=== PATIENT | male | born 1985 | race Caucasian/White ===

== ENCOUNTER 2018-12-07 07:36 | Emergency (ER) | payer OTHER, BC ==
[2018-12-07 07:46] VITALS: BP 140/107
[2018-12-07] MEDS ORDERED: NORMAL SALINE 1000 ML 1,000 ML IV ONE (09:43)
[2018-12-07] MEDS ORDERED: DIPHENHYDRAMINE HCL 50 MG/ML VIAL IV ONE ×2 (09:43→10:13)
[2018-12-07] MEDS ORDERED: METOCLOPRAMIDE HCL INJ/PF 10 MG/2 ML SDV IV ONE (09:44)
--- NOTE | 2018-12-07 09:46 | ER Document Report ---
ED Medical Screen (RME) - General Chief Complaint: Headache Stated Complaint: HEADACHE Time Seen by Provider: 12/07/18 09:28 Primary Care Provider: YAMINI KHAN [Primary Care Provider] - Follow up as needed TRAVEL OUTSIDE OF THE [place] IN LAST 30 DAYS: No - HPI Notes: 12/07/18 09:44 Patient is a 33-year-old male that presents to the emergency department for chief complaint of headache. Patient reports gradual onset of a headache that starts behind his eyes and radiates across the top of his head and down his neck. The headache is worse with movement. He states it is better when he is not moving. He reports phonophobia but denies photophobia. Patient states his vision seems blurry which slightly improves when he closes his left eye. He does have a history of headaches similar in the past. He saw his chiropractor on Monday for a cervical alignment and states that initially he did have some improvement of his symptoms but they became worse on . Past medical history: Negative Past surgical history: Negative Past social history: Quit tobacco 5 years ago, denies alcohol and drug use ROS: GENERAL: Denies fever of chills CV: Denies chest pain PHYSICAL EXAMINATION: GENERAL: Appears uncomfortable, well-nourished HEAD: Atraumatic, normocephalic. EYES: Pupils equal round extraocular movements intact, conjunctiva are normal. ENT: Nares patent NECK: Bilateral paraspinal cervical muscle tenderness LUNGS: No respiratory distress Musculoskeletal: Normal range of motion NEUROLOGICAL: Normal speech, normal gait. PSYCH: Normal mood, normal affect. MDM: Patient seen and examined for rapid initial assessment. Vital signs reviewed. A comprehensive ED assessment and evaluation of the patient, analysis of test results and completion of the medical decision making process will be conducted by additional ED providers. - Related Data Allergies/Adverse Reactions: amoxicillin Allergy (Verified 12/07/18 07:38) Past Medical History - Social History Chew tobacco use (# tins/day): No Frequency of alcohol use: Rare Drug Abuse: None Renal/ Medical History: Denies: Hx Peritoneal Dialysis Physical Exam - Vital signs Vitals: Temp Pulse Resp BP Pulse Ox 97.8 F 80 18 140/107 H 97 12/07/18 07:43 12/07/18 07:43 12/07/18 07:43 12/07/18 07:43 12/07/18 07:43 Course - Vital Signs Vital signs: Temp Pulse Resp BP Pulse Ox 97.8 F 80 18 140/107 H 97 12/07/18 07:43 12/07/18 07:43 12/07/18 07:43 12/07/18 07:43 12/07/18 07:43 Doctor's Discharge - Discharge Referrals: LOCALMD,NO [Primary Care Provider] - Follow up as needed
[2018-12-07] MEDS ORDERED: KETOROLAC TROMETHAMINE INJ/PF 30 MG/1 ML SDV IV ONE (10:13)
--- NOTE | 2018-12-07 10:17 | RADIOLOGY REPORT (SQ) ---
EXAM DESCRIPTION: CT HEAD WITHOUT COMPLETED DATE/TIME: 12/07/2018 10:02 am REASON FOR STUDY: headache COMPARISON: None. TECHNIQUE: Axial images acquired through the brain without intravenous contrast. Images reviewed wi th bone, brain and subdural windows. Additional sagittal and coronal reconstructions were generated. Images stored on PACS. All CT scanners at this facility use dose modulation, iterative reconstruction, and/or weight based d osing when appropriate to reduce radiation dose to as low as reasonably achievable (ALARA). [facility]: Dose Right [facility]: CareDose [facility]: Dose Right [facility]: Teradose 4D [facility]: BoldIQ RADIATION DOSE: CT Rad equipment meets quality standard of care and radiation dose reduction techniq ues were employed. CTDIvol: 53.2 mGy. DLP: 1070 mGy-cm. mGy. LIMITATIONS: None. FINDINGS: VENTRICLES: Normal size and contour. CEREBRUM: No masses. No hemorrhage. No midline shift. No evidence for acute infarction. Normal gra y/white matter differentiation. No areas of low density in the white matter. CEREBELLUM: No masses. No hemorrhage. No alteration of density. No evidence for acute infarction. EXTRAAXIAL SPACES: No fluid collections. No masses. ORBITS AND GLOBE: No intra- or extraconal masses. Normal contour of globe without masses. CALVARIUM: No fracture. PARANASAL SINUSES: No fluid or mucosal thickening. SOFT TISSUES: No mass or hematoma. OTHER: No other significant finding. IMPRESSION: No acute intracranial pathology. No noncontrast CT findings to explain headache. EVIDENCE OF ACUTE STROKE: NO. COMMENT: Quality ID # [id number]: Final reports with documentation of one or more dose reduction techniques (e.g., Automated exposure control, adjustment of the mA and/or kV according to patient size, use of iterative reconstruction technique) TECHNICAL DOCUMENTATION: JOB ID: [id number] [employer]- All Rights Reserved Reading location - IP/workstation name: [email or web address]
--- NOTE | 2018-12-07 12:02 | ER Document Report ---
ED Headache - General Chief Complaint: Headache Stated Complaint: HEADACHE Time Seen by Provider: 12/07/18 09:28 Primary Care Provider: YAMINI KHAN [NO LOCAL MD] - Follow up as needed TRAVEL OUTSIDE OF THE [place] IN LAST 30 DAYS: No - HPI Patient complains to provider of: Headache Notes: Patient coming in for evaluation seen by the provider in triage notes provided below Patient is a 33-year-old male that presents to the emergency department for chief complaint of headache. Patient reports gradual onset of a headache that starts behind his eyes and radiates across the top of his head and down his neck. The headache is worse with movement. He states it is better when he is not moving. He reports phonophobia but denies photophobia. Patient states his vision seems blurry which slightly improves when he closes his left eye. He does have a history of headaches similar in the past. He saw his chiropractor on Monday for a cervical alignment and states that initially he did have some improvement of his symptoms but they became worse on . Past medical history: Negative Past surgical history: Negative Past social history: Quit tobacco 5 years ago, denies alcohol and drug use Patient upon my evaluation states pain in the back of his neck and front of his head. Around his eyes. Patient states does have some slight blurry vision with the headache worsens. Patient states similar headaches proximal 1-2 weeks ago for which he was saw the [place] for his prescribed diclofenac. Patient states initially did receive some relief with diclofenac however now headache is exacerbated. Patient denies any acute trauma denies any fevers chills nausea vomiting diarrhea. - Related Data Allergies/Adverse Reactions: amoxicillin Allergy (Verified 12/07/18 07:38) Past Medical History - Social History Smoking Status: Never Smoker Chew tobacco use (# tins/day): No Frequency of alcohol use: Rare Drug Abuse: None Family History: None Patient has suicidal ideation: No Patient has homicidal ideation: No Renal/ Medical History: Denies: Hx Peritoneal Dialysis Review of Systems - Review of Systems Constitutional: No symptoms reported EENT: No symptoms reported Cardiovascular: No symptoms reported Respiratory: No symptoms reported Gastrointestinal: No symptoms reported Genitourinary: No symptoms reported Male Genitourinary: No symptoms reported Musculoskeletal: No symptoms reported Skin: No symptoms reported Hematologic/Lymphatic: No symptoms reported Neurological/Psychological: Headaches -: Yes All other systems reviewed and negative Physical Exam - Vital signs Vitals: Temp Pulse Resp BP Pulse Ox 97.8 F 80 18 140/107 H 97 12/07/18 07:43 12/07/18 07:43 12/07/18 07:43 12/07/18 07:43 12/07/18 07:43 Interpretation: Normal - General General appearance: Appears well, Alert - HEENT Head: Normocephalic, Atraumatic Eyes: Normal Pupils: PERRL Notes: Patient has bilateral paraspinal pain no midline pain of the neck pain to palpation adjacent to the union both sides pain to palpation of the frontalis muscle - Respiratory Respiratory status: No respiratory distress Chest status: Nontender Breath sounds: Normal Chest palpation: Normal - Cardiovascular Rhythm: Regular Heart sounds: Normal auscultation Murmur: No - Abdominal Inspection: Normal Distension: No distension Bowel sounds: Normal Tenderness: Nontender Organomegaly: No organomegaly - Back Back: Normal, Nontender - Extremities General upper extremity: Normal inspection, Nontender, Normal color, Normal ROM, Normal temperature General lower extremity: Normal inspection, Nontender, Normal color, Normal ROM, Normal temperature, Normal weight bearing. No: Iliana's sign - Neurological Neuro grossly intact: Yes Cognition: Normal Orientation: AAOx4 [place] Coma Scale Eye Opening: Spontaneous [place] Coma Scale Verbal: Oriented [place] Coma Scale Motor: Obeys Commands [place]lene Coma Scale Total: 15 Speech: Normal Motor strength normal: LUE, RUE, LLE, RLE Sensory: Normal - Psychological Associated symptoms: Normal affect, Normal mood - Skin Skin Temperature: Warm Skin Moisture: Dry Skin Color: Normal Course - Re-evaluation Re-evalutation: 12/07/18 13:47 Pain resolved with a headache cocktail here. Will send patient home with [employer] for headache also Fioricet. Patient states understanding will be discharged home. 12/07/18 13:47 The patient presents with headache without signs of COMPLEX CASE MANAGER bleed, stroke, infection, or other serious etiology. The patient is neurologically intact. Given the extremely low risk of these diagnoses further testing and evaluation for these possibilities does not appear to be indicated at this time. The patient has been instructed to return if the symptoms worsen or change in any way.. - Vital Signs Vital signs: Temp Pulse Resp BP Pulse Ox 97.8 F 80 18 140/107 H 97 12/07/18 07:43 12/07/18 07:43 12/07/18 07:43 12/07/18 07:43 12/07/18 07:43 Discharge - Discharge Clinical Impression: Tension headache Condition: Good Disposition: HOME, SELF-CARE Instructions: Tension Headache ([facility]) Additional Instructions: Your examination is consistent with a tension headache. I would recommend Tylenol Motrin Zofran Compazine for the pain. He may use these Fioricet for severe pain. Return to ER symptoms worsen. Prescriptions: Butalbital/Aspirin/Caffeine [Fiorinal 50-325-40 mg Capsule] 1 cap PO Q4 PRN #30 cap PRN Reason: Ondansetron [Zofran Odt 4 mg Tablet] 1 - 2 tab PO Q4H PRN #30 tab.rapdis PRN Reason: For Nausea/Vomiting Prochlorperazine Maleate [Compazine] 5 mg PO Q6 #30 tablet Referrals: LOCALMD,NO [NO LOCAL MD] - Follow up as needed
== END 2018-12-07 12:19 | disposition home or self-care (01) ==
LOC: ER 07:36
DX: G44.209 Tension-type headache, unspecified, not intractable (principal); M54.2 Cervicalgia; Z87.891 Personal history of nicotine dependence
CPT/HCPCS: 99283; 96361; 96374; 96375; 70450; J1200; J1885; J2765; J7030